=== PATIENT | male | born 1990 | race Two or more races ===

== ENCOUNTER 2021-12-15 10:12 | Emergency (ER) | payer OTHER ==
[~2021-12-15] VITALS: Ht 172.7 cm; Wt 81.2 kg
== END 2021-12-15 13:00 | disposition home or self-care (01) ==
LOC: ED 10:12
DX: S53.401A Unspecified sprain of right elbow, initial encounter (principal); X58.XXXA Exposure to other specified factors, initial encounter
CPT/HCPCS: 73080; 99283-25; A9270